=== PATIENT | female | born 1985 | race Two or more races ===

== ENCOUNTER → 2018-08-09 | Outpatient (CLI) | END | disposition home or self-care (01) ==

== ENCOUNTER 2018-12-23 17:37 | Outpatient (CLI) | payer MEDICAID ==
[~2018-12-23] VITALS: Ht 152.4 cm; Wt 87.7 kg
[2018-12-23 18:07] VITALS: Ht 152.4 cm; Wt 87.7 kg
[2018-12-23] MEDS ORDERED: PREN-93 PO (18:10)
--- NOTE | 2018-12-23 22:57 | PN ---
Triage Information Date/Time Reason for visit: deceleration of FHT ( not in detail informed) Weeks of Gestation 28w6d /Para Diabetes: none Hypertention: none Additional information sent from NST room for extended observation Objective Heart Rate: 140's Heart Rate Comments variable is very brief ,steep within the normal range of FHT without any significance Contractions: None Results/Medications Imaging Results BPP 06/02 NADEEM 16.2 Disposition: Discharge Assessment/Plan A IUP 28w6d adequate FHR for GA P discharge home advise to monitor movement RTH if FM decrease immediately CAITLIN MUHAMMAD MD Dec 23, 2018 22:57
--- NOTE | 2018-12-23 23:20 | TRIAGE ---
OB Triage Datetime Report Generated by CPN: 12/23/2018 23:19 Datetime: 12/23/2018 22:18 Stage of : OB Triage Labor Evaluation Frequency: X0 Monitor Mode: External Duration (sec)2399: X0 Quality: Mild Pattern: Normal: <= 5 Contractions in 10 Minutes Resting Tone [place]: Relaxed Heart Rate FHR Baseline Rate: 145 Monitor Mode: External US Variability: Moderate 6-25 bpm Accelerations: 15X15 Decelerations: None Category: Category I Datetime: 12/23/2018 21:15 Stage of : OB Triage Labor Evaluation Frequency: X0 Monitor Mode: External Duration (sec)2399: X0 Pattern: Normal: <= 5 Contractions in 10 Minutes Resting Tone [place]: Relaxed Heart Rate FHR Baseline Rate: 145 Monitor Mode: External US Variability: Moderate 6-25 bpm Accelerations: 10X10 Decelerations: None Category: Category I Datetime: 12/23/2018 20:12 Stage of : OB Triage Labor Evaluation Frequency: irritability Duration (sec)2399: 30 Quality: Mild Pattern: Normal: <= 5 Contractions in 10 Minutes Resting Tone [place]: Relaxed Heart Rate FHR Baseline Rate: 145 Monitor Mode: External US Variability: Moderate 6-25 bpm Accelerations: 15X15 Decelerations: None Category: Category I Comments: appropriate for gestational age Datetime: 12/23/2018 19:29 Monitor Mode: External US Category: Category I Comments: pt reported increased movement. Datetime: 12/23/2018 19:00 Maternal Assessment Level of Consciousness: Fully Conscious DTR's/Clonus: DTRs 1+ Headache: Denies Blurred Vision: No Respiratory Effort: Unlabored Breath Sounds, Left: Clear and Equal Breath Sounds, Right: Clear and Equal Nausea/Vomiting: Denies RUQ Epigastric Pain: Denies Facial Edema: None Labor Evaluation Frequency: NONE Monitor Mode: External Resting Tone [place]: Relaxed Heart Rate FHR Baseline Rate: 150 Monitor Mode: External US Variability: Moderate 6-25 bpm Accelerations: 10X10 Decelerations: None Category: Category I Pain Assessment Pain Scale: 0 Pain Presence: None/Denies Pain Type: N/A Pain Goal: 3 Vaginal Exam Membrane Status: Intact Datetime: 12/23/2018 18:05 Time of Arrival: 12/23/2018 18:05 EGA: 28.6 Arrived By: Ambulatory Arrived From: Dr. Gonzalez Chief Complaint: PT CAME IN FROM [facility]DS OFFICE FOR AUDIBLE DECELERATION Movement: Present Contractions: Denies/Absent Rupture of Membranes: Denies Vaginal Discharge: Denies Recent Sexual Intercouse: Denies Abdominal Trauma: Not Applicable Patient Complaints: Other Additional Patient Complaints: NONE Time Provider Notified: 12/23/2018 19:17 Provider Notified: DR. CANNON Initial Plan: ZOIE AND RYAN
== END 2018-12-23 22:18 | disposition home or self-care (01) ==
LOC: OBT 17:37 → L-D 17:38 → OBT 22:18
PROVIDERS: ATTEND Obstetrics & Gynecology
DX: O76 Abnormality in fetal heart rate and rhythm complicating labor and delivery (principal); Z3A.38 38 weeks gestation of pregnancy
CPT/HCPCS: 76818; Z7500; G0463

== ENCOUNTER 2019-01-11 21:56 | Inpatient (IN) | payer MEDICAID ==
[~2019-01-11 21:56] MED LIST: PREN-93 PO
[2019-01-12] MEDS ORDERED: LIDOCAINE/MYLANTA 40 ML BTL PO ONE (04:00)
[2019-01-12] MEDS ORDERED: TERBUTALINE 1 MG/ML INJ SC ONE ×2 (05:49→06:00)
[2019-01-12] MEDS ORDERED: LACTATED RINGER'S 500 ML IV ONE (06:00)
[2019-01-12] MEDS ORDERED: LACTATED RINGER'S 1,000 ML IV ONE (08:00)
--- NOTE | 2019-01-12 10:47 | TRIAGE ---
OB Triage Datetime Report Generated by CPN: 01/12/2019 10:46 Datetime: 01/12/2019 10:39 Category: Category III Datetime: 01/12/2019 09:22 Stage of : OB Triage Labor Evaluation Frequency: 1-5 Monitor Mode: External Duration (sec)2399: 30-50 Pattern: Normal: <= 5 Contractions in 10 Minutes Resting Tone [place]: Relaxed Heart Rate FHR Baseline Rate: 150 Monitor Mode: External US Variability: Moderate 6-25 bpm Accelerations: 15X15 Decelerations: None Category: Category I Pain Presence: None/Denies Pain Type: N/A Datetime: 01/12/2019 08:31 Stage of : OB Triage Labor Evaluation Frequency: 1-5 Monitor Mode: External Duration (sec)2399: 30 Pattern: Normal: <= 5 Contractions in 10 Minutes Resting Tone [place]: Relaxed Heart Rate FHR Baseline Rate: 135 Monitor Mode: External US Variability: Moderate 6-25 bpm Accelerations: 15X15 Decelerations: None Category: Category I Pain Presence: None/Denies Pain Type: N/A Datetime: 01/12/2019 07:43 Stage of : OB Triage Labor Evaluation Frequency: 1-7 Monitor Mode: External Duration (sec)2399: 30 Pattern: Normal: <= 5 Contractions in 10 Minutes Resting Tone [place]: Relaxed Heart Rate FHR Baseline Rate: 145 Monitor Mode: External US Variability: Moderate 6-25 bpm Accelerations: 15X15 Decelerations: None Category: Category I Pain Presence: None/Denies Pain Type: N/A Datetime: 01/12/2019 06:21 Pain Assessment Pain Scale: 0 Pain Presence: None/Denies Pain Type: N/A Datetime: 01/12/2019 05:46 Vaginal Exam Dilatation (cms): 0.0 Effacement (%): 0 Station: -3 Exam By: Naman Wray RN Vaginal Bleeding: None Cervix, Consistency: Moderate Cervix, Position: Posterior Datetime: 01/12/2019 05:30 Pain Assessment Pain Scale: 0 Pain Presence: None/Denies Pain Type: N/A Datetime: 01/12/2019 04:00 Pain Assessment Pain Scale: 0 Pain Presence: None/Denies Pain Type: N/A Datetime: 01/12/2019 00:55 Pain Assessment Pain Scale: 4 Pain Presence: Constant Pain Type: Pressure Pain Location: Abdomen Datetime: 01/12/2019 00:35 Time of Arrival: 01/11/2019 21:45 EGA: 31.4 Arrived By: Wheelchair Arrived From: Home Chief Complaint: Constant abdominal pain Movement: Present Contractions: Unsure Time Contractions Began: 01/11/2019 17:45 Contractions: Constant Rupture of Membranes: Denies Vaginal Bleeding: None Vaginal Discharge: Denies Recent Sexual Intercouse: Denies Abdominal Trauma: Not Applicable Patient Complaints: Other Time Provider Notified: 01/12/2019 00:58 Provider Notified: Dr. Feliciano Initial Plan: [facility] Datetime: 01/12/2019 00:33 Stage of : OB Triage Assessment Type: Triage Maternal Assessment Level of Consciousness: Fully Conscious DTR's/Clonus: DTRs 2+; No Clonus Headache: Denies Blurred Vision: No Respiratory Effort: Unlabored; Regular Rhythm; Equal Expansion Breath Sounds, Left: Clear and Equal Breath Sounds, Right: Clear and Equal Nausea/Vomiting: Denies RUQ Epigastric Pain: Denies Lower Extremities Edema: None Degree: None Upper Extremities Edema: None Degree: None Facial Edema: None Temperature Route: Oral Fall Risk Assessment History of Falling: (0) No Secondary Diagnosis: (0) No Ambulatory Aid: (0) Bedrest/Nurse Assist IV Therapy: (0) No Gait: (0) Normal/Bedrest/Immobile Mental Status: (0) Oriented to Own Ability Fall Score: 0 Fall Risk Score Definition: No Risk: No action required Pain Assessment Pain Scale: 5 Pain Presence: Constant Pain Type: Pressure (Annotations: Tightening) Pain Location: Abdomen Datetime: 12/23/2018 18:05 EGA: 28.6
[2019-01-12] MEDS ORDERED: MAGNESIUM SULFATE 4 GM/100 ML 100 ML IV ONE (11:00)
[2019-01-12] MEDS: LACTATED RINGER'S 1,000 ML IV SCH (11:54)
[2019-01-12] MEDS: MAGNESIUM SULFATE 20 GM/500 ML 500 ML IV SCH ×2 (13:02→22:18)
[2019-01-12] MEDS: BETAMET NA PHOS/AC(6 MG/ML) 2 ML INJ SYG IM SCH (13:06)
--- NOTE | 2019-01-12 20:02 | HP ---
Date/Time of Note Date/Time of Note DATE: 01/12/19 TIME: 19:59 OB - History Hx of Present Free Text/Dictation 33-year-old female 1 para 0 at 31 weeks plus gestation admitted complaining of onset of uterine contractions started 5:30 PM on 01/11/2019 Denies rupture of membrane no vaginal bleeding Last Menstrual Period: Jun 16, 2018 Estimated Due Date: March 11, 2019 : 1 Para: 0 Care: Good Care Ultrasounds: Normal mid trimester US Obstetrical Complications: None Medical Complications: None Past Family/Social History * Past Medical, Surgical, Family and Obstetric Histories reviewed from chart. Blood Type: AB+ Rubella: immune RPR/VDRL: Negative GBS Status: Unknown HBsAG: Negative OB Admission Exam Physical Exam HEENT: WNL Heart: Rhythm Normal Lungs: Clear, Equal Abdomen: WNL Extremities: Normal Reflexes: Normal Cervical Dilatation: None Effacement: 0% Station: -3 Membranes: Intact Heart Rate: 140's Accelerations: Accelerations Present Decelerations: Early Decelerations Varibility: Marked Contractions on Admission: < 5 Minutes Apart Date/Time Contractions Began: 5:30 PM 01/11/2019 Frequency of Contractions: Every 5-10 minutes Duration: Over 50 seconds Intensity: Mild Last 72 hours Lab Results Magnesium Level Test 01/12/19 18:25 Magnesium Level 4.5 H OB Assessment/Plan Reason for admission: labor Other Assessment: contractions at 31+ weeks Other plan: Patient was started on magnesium sulfate for neuro protection Will give steroids Continue to observe patient in house DORI ARZATE MD Jan 12, 2019 20:02
[2019-01-13] MEDS: LACTATED RINGER'S 1,000 ML IV SCH ×2 (01:14→17:42)
[2019-01-13] MEDS: MAGNESIUM SULFATE 20 GM/500 ML 500 ML IV SCH (07:27)
[2019-01-13] MEDS ORDERED: FERROUS SULFATE (EC) 325 MG TAB PO SCH ×2 (09:00→21:00)
[2019-01-13] MEDS ORDERED: PRENATAL VITAMIN PO SCH ×2 (09:00→21:00)
[2019-01-13] MEDS: BETAMET NA PHOS/AC(6 MG/ML) 2 ML INJ SYG IM SCH (13:11)
--- NOTE | 2019-01-13 14:30 | DS ---
Date/Time of Note Date/Time of Note DATE: 01/13/19 TIME: 14:28 Obstetrical Discharge Record Final Diagnosis Final Diagnosis: not delivered Other Final Diagnosis contractions at 31 weeks Complications Tocolytics: Magnesium Sulfate, Terbutaline, Other (Nifedipine) Condition on Discharge Physical Assessment Voiding: Yes Bowel Movement: Yes Breast: Soft, non-tender, Filling Fundus: Other Abdomen and Incision: Abdomen is gravid Final height is 32 Calf Tenderness: No Patient Condition: Good (Patient without uterine contractions and appears stable on p.o. nifedipine) DORI ARZATE MD Jan 13, 2019 14:30
--- NOTE | 2019-01-13 14:39 | PD.PPDC ---
[employer] Discharge Instruction Provider Information Physician Information 34-year-old female admitted with contractions are not successful tocolysis of contractions using magnesium sulfate nifedipine Diagnosis [id number] Final Diagnosis: [place] contractions Condition [id number] Patient Condition: [id number] Good (Patient without uterine contractions and appears stable on p.o. nifedipine) Diet [id number] Diet: Vwjdx8o Resume Regular Diet Activity/Restrictions [id number] Activity: Xklgb4r Bedrest May Shower [id number] Restrictions: Pqgev4a No Exercising No Lifting Nothing in the Vagina No [place] Follow-up Follow-up with Physician: 4, Day/Days (In clinic for care) Return to clinic for Comment: Refer back to OB triage for persistent uterine contractions DORI ARZATE MD Jan 13, 2019 14:39
[2019-01-13] MEDS ORDERED: NIFE10CA PO ×2 (14:40→19:46)
[2019-01-13] MEDS: NIFEdipine 10 MG CAP PO SCH ×2 (15:11→18:00)
[2019-01-13] MEDS ORDERED: CALCIUM CARBONATE 1.25 GM TAB PO SCH (21:00)
== END 2019-01-13 20:25 | disposition home or self-care (01) | DRG 833 ==
LOC: OBT 21:56 → L-D 21:57 → PP1 01-12 10:43 → OBT 01-12 10:43
PROVIDERS: ADMIT Obstetrics & Gynecology; ATTEND Obstetrics & Gynecology
DX: O47.03 False labor before 37 completed weeks of gestation, third trimester (principal); Z3A.31 31 weeks gestation of pregnancy
CPT/HCPCS: 36415; 76705; 76815; 76817; 81003; 82731; 83735; 96372; G0463; J0702; J3105; J3475; J7120

== ENCOUNTER 2019-03-11 09:54 | Outpatient (CLI) | payer MEDICAID ==
[~2019-03-11] VITALS: Ht 154.9 cm; Wt 92.9 kg
[~2019-03-11 09:54] MED LIST changes: +NIFE10CA PO
[2019-03-11 10:42] VITALS: Ht 154.9 cm; Wt 92.9 kg
[2019-03-11 10:43] VITALS: BP 119/66; PULSE 90; RESP 18
--- NOTE | 2019-03-11 11:39 | PN ---
Triage Information Date/Time Reason for visit: postdate for NST BPp Weeks of Gestation 40wks /Para 1/0 Diabetes: none Hypertention: none Objective Vital Signs Date Temp Pulse Resp B/P (MAP) Pulse Ox O2 O2 Flow FiO2 Time Delivery Rate 03/11/19 98.1 90 18 119/66 10:43 (83) Heart Rate: 140's Contractions: None Disposition: Discharge Assessment/Plan [facility] 08/04 wants to discharge the patient and induce her next Thursday, CX closed Precautions discussed Questions answered Return to clinic in2 days for NST BPP VICTORIANO METCALF M.D. March 11, 2019 11:39
--- NOTE | 2019-03-11 12:17 | TRIAGE ---
OB Triage Datetime Report Generated by CPN: 03/11/2019 12:17 Datetime: 03/11/2019 11:36 Stage of : OB Triage Datetime: 03/11/2019 11:11 Labor Evaluation Frequency: 0 Monitor Mode: External Pattern: Normal: <= 5 Contractions in 10 Minutes Resting Tone [place]: Relaxed Heart Rate FHR Baseline Rate: 135 Monitor Mode: External US Variability: Moderate 6-25 bpm Accelerations: 10X10 Decelerations: None Category: Category I Pain Assessment Pain Scale: 0 Pain Presence: None/Denies Pain Type: N/A Pain Goal: 3 Pain Relief Measures: Comfort Measures Datetime: 03/11/2019 11:10 Stage of : OB Triage Datetime: 03/11/2019 10:11 Stage of : OB Triage Assessment Type: Triage Maternal Assessment Level of Consciousness: Fully Conscious DTR's/Clonus: DTRs 2+; No Clonus Headache: Denies Blurred Vision: No Respiratory Effort: Unlabored; Regular Rhythm; Equal Expansion Breath Sounds, Left: Clear and Equal Breath Sounds, Right: Clear and Equal Nausea/Vomiting: Denies RUQ Epigastric Pain: Denies Facial Edema: None Temperature Route: Axillary Fall Risk Assessment History of Falling: (0) No Secondary Diagnosis: (0) No Ambulatory Aid: (0) Bedrest/Nurse Assist IV Therapy: (0) No Gait: (0) Normal/Bedrest/Immobile Mental Status: (0) Oriented to Own Ability Fall Score: 0 Fall Risk Score Definition: No Risk: No action required Labor Evaluation Frequency: 0 Monitor Mode: External Pattern: Normal: <= 5 Contractions in 10 Minutes Resting Tone [place]: Relaxed Heart Rate FHR Baseline Rate: 125 Monitor Mode: External US Variability: Moderate 6-25 bpm Pain Assessment Pain Scale: 0 Pain Presence: None/Denies Pain Type: N/A Pain Goal: 3 Pain Relief Measures: Comfort Measures Datetime: 01/13/2019 20:25 Stage of : Antepartum Datetime: 01/13/2019 20:22 Stage of : Antepartum Datetime: 01/13/2019 19:11 Stage of : Antepartum Assessment Type: Ongoing Assessment Maternal Assessment Level of Consciousness: Fully Conscious DTR's/Clonus: DTRs 2+; No Clonus Headache: Denies Blurred Vision: No Respiratory Effort: Unlabored; Regular Rhythm; Equal Expansion Breath Sounds, Left: Clear and Equal Breath Sounds, Right: Clear and Equal Nausea/Vomiting: Denies RUQ Epigastric Pain: Denies Lower Extremities Edema: None Degree: None Upper Extremities Edema: None Degree: None Facial Edema: None Temperature Route: Oral Fall Risk Assessment History of Falling: (0) No Secondary Diagnosis: (0) No Ambulatory Aid: (0) Bedrest/Nurse Assist IV Therapy: (0) No Gait: (0) Normal/Bedrest/Immobile Mental Status: (0) Oriented to Own Ability Fall Score: 0 Fall Risk Score Definition: No Risk: No action required Monitor Mode: External Contraction Comments: PT DENIES CRAMPING Monitor Mode: External US Comments: PT STATES + FM Pain Presence: None/Denies Pain Type: N/A Vaginal Exam Membrane Status: Intact Vaginal Bleeding: None Datetime: 01/13/2019 18:24 Labor Evaluation Frequency: 0 Monitor Mode: External Pattern: Normal: <= 5 Contractions in 10 Minutes Resting Tone [place]: Relaxed Heart Rate FHR Baseline Rate: 135 Monitor Mode: External US FHR Baseline Changes: No Baseline Change Variability: Moderate 6-25 bpm Accelerations: 15X15 Decelerations: None Category: Category I Datetime: 01/13/2019 17:00 Labor Evaluation Frequency: 0 Monitor Mode: External Pattern: Normal: <= 5 Contractions in 10 Minutes Resting Tone [place]: Relaxed Heart Rate FHR Baseline Rate: 140 Monitor Mode: External US FHR Baseline Changes: No Baseline Change Variability: Moderate 6-25 bpm Accelerations: 15X15 Decelerations: None Category: Category I Datetime: 01/13/2019 16:36 Monitor Mode: External Duration (sec)2399: 0 Pattern: Normal: <= 5 Contractions in 10 Minutes Resting Tone [place]: Relaxed Heart Rate FHR Baseline Rate: 140 Monitor Mode: External US FHR Baseline Changes: No Baseline Change Variability: Moderate 6-25 bpm Accelerations: 10X10 Decelerations: None Category: Category I Datetime: 01/13/2019 16:35 Stage of : Antepartum Temperature Route: Oral Pain Assessment Pain Scale: 0 Pain Presence: None/Denies Pain Goal: 0 Datetime: 01/13/2019 16:31 Stage of : Labor Datetime: 01/13/2019 15:30 Labor Evaluation Frequency: 0 Monitor Mode: External Pattern: Normal: <= 5 Contractions in 10 Minutes Resting Tone [place]: Relaxed Heart Rate FHR Baseline Rate: 140 Monitor Mode: External US FHR Baseline Changes: No Baseline Change Variability: Moderate 6-25 bpm Accelerations: 10X10 Decelerations: None Category: Category I Datetime: 01/13/2019 11:39 Stage of : Antepartum Temperature Route: Oral Labor Evaluation Frequency: 0 Monitor Mode: External Pattern: Normal: <= 5 Contractions in 10 Minutes Resting Tone [place]: Relaxed Heart Rate FHR Baseline Rate: 140 Monitor Mode: External US FHR Baseline Changes: No Baseline Change Variability: Moderate 6-25 bpm Accelerations: 10X10 Decelerations: None Category: Category I Pain Assessment Pain Scale: 0 Pain Presence: None/Denies Pain Goal: 0 Datetime: 01/13/2019 11:02 Labor Evaluation Frequency: 0 Monitor Mode: External Pattern: Normal: <= 5 Contractions in 10 Minutes Resting Tone [place]: Relaxed Heart Rate FHR Baseline Rate: 130 Monitor Mode: External US FHR Baseline Changes: No Baseline Change Variability: Moderate 6-25 bpm Accelerations: 10X10 Decelerations: None Category: Category I Datetime: 01/13/2019 10:09 Labor Evaluation Frequency: 0 Monitor Mode: External Pattern: Normal: <= 5 Contractions in 10 Minutes Heart Rate FHR Baseline Rate: 140 Monitor Mode: External US FHR Baseline Changes: No Baseline Change Variability: Moderate 6-25 bpm Accelerations: 10X10 Decelerations: None Category: Category I Datetime: 01/13/2019 09:00 Labor Evaluation Frequency: 0 Monitor Mode: External Pattern: Normal: <= 5 Contractions in 10 Minutes Resting Tone [place]: Relaxed Datetime: 01/13/2019 07:40 Assessment Type: Ongoing Assessment Maternal Assessment Level of Consciousness: Fully Conscious DTR's/Clonus: DTRs 2+; No Clonus Headache: Denies Blurred Vision: No Respiratory Effort: Unlabored; Regular Rhythm; Equal Expansion Breath Sounds, Left: Clear and Equal Breath Sounds, Right: Clear and Equal Nausea/Vomiting: Denies RUQ Epigastric Pain: Denies Lower Extremities Edema: None Degree: None Upper Extremities Edema: None Degree: None Facial Edema: None Fall Risk Assessment History of Falling: (0) No Secondary Diagnosis: (0) No Ambulatory Aid: (0) Bedrest/Nurse Assist IV Therapy: (20) Yes Gait: (0) Normal/Bedrest/Immobile Mental Status: (0) Oriented to Own Ability Fall Score: 20 Fall Risk Score Definition: No Risk: No action required Datetime: 01/13/2019 07:39 Stage of : Antepartum Labor Evaluation Frequency: 0 Monitor Mode: External Pattern: Normal: <= 5 Contractions in 10 Minutes Resting Tone [place]: Relaxed Heart Rate FHR Baseline Rate: 140 Monitor Mode: External US FHR Baseline Changes: No Baseline Change Variability: Moderate 6-25 bpm Accelerations: 10X10 Decelerations: None Category: Category I Pain Assessment Pain Scale: 0 Pain Presence: None/Denies Pain Goal: 0 Datetime: 01/13/2019 07:34 Stage of : Antepartum Datetime: 01/13/2019 07:00 Labor Evaluation Frequency: NONE Monitor Mode: External Resting Tone [place]: Relaxed Heart Rate FHR Baseline Rate: 130 Monitor Mode: External US Variability: Moderate 6-25 bpm Accelerations: 15X15 Decelerations: None Category: Category I Pain Presence: None/Denies Pain Type: N/A Datetime: 01/13/2019 06:35 Stage of : Antepartum Datetime: 01/13/2019 06:00 DTR's/Clonus: DTRs 2+; No Clonus Labor Evaluation Frequency: NONE Monitor Mode: External Resting Tone [place]: Relaxed Heart Rate FHR Baseline Rate: 130 Monitor Mode: External US Variability: Moderate 6-25 bpm Accelerations: 15X15 Decelerations: None Category: Category I Pain Presence: None/Denies Pain Type: N/A Datetime: 01/13/2019 05:37 Monitor Mode: External US Datetime: 01/13/2019 05:00 Labor Evaluation Frequency: NONE Monitor Mode: External Resting Tone [place]: Relaxed Heart Rate FHR Baseline Rate: 130 Monitor Mode: External US Variability: Moderate 6-25 bpm Accelerations: 15X15 Decelerations: None Category: Category I Pain Presence: None/Denies Pain Type: N/A Pain Assessment Comments: PT SLEEPING BUT EASILY AROUSED Datetime: 01/13/2019 04:00 Stage of : Antepartum Maternal Assessment Level of Consciousness: Fully Conscious DTR's/Clonus: DTRs 2+; No Clonus Breath Sounds, Left: Clear and Equal Breath Sounds, Right: Clear and Equal Labor Evaluation Frequency: NONE Monitor Mode: External Resting Tone [place]: Relaxed Heart Rate FHR Baseline Rate: 130 Monitor Mode: External US Variability: Moderate 6-25 bpm Accelerations: 15X15 Decelerations: None Category: Category I Pain Presence: None/Denies Pain Type: N/A Vaginal Exam Membrane Status: Intact Vaginal Bleeding: None Datetime: 01/13/2019 03:30 Monitor Mode: External US Datetime: 01/13/2019 03:00 Labor Evaluation Frequency: NONE Monitor Mode: External Resting Tone [place]: Relaxed Heart Rate FHR Baseline Rate: 130 Monitor Mode: External US Variability: Moderate 6-25 bpm Accelerations: 15X15 Decelerations: None Category: Category I Pain Presence: None/Denies Pain Type: N/A Datetime: 01/13/2019 02:00 Labor Evaluation Frequency: NONE Monitor Mode: External Resting Tone [place]: Relaxed Heart Rate FHR Baseline Rate: 125 Monitor Mode: External US Variability: Moderate 6-25 bpm Pain Presence: None/Denies Pain Type: N/A Datetime: 01/13/2019 01:14 Stage of : Antepartum Datetime: 01/13/2019 01:00 Labor Evaluation Frequency: NONE Monitor Mode: External Resting Tone [place]: Relaxed Heart Rate FHR Baseline Rate: 130 Monitor Mode: External US Variability: Moderate 6-25 bpm Accelerations: 15X15 Decelerations: None Category: Category I Pain Presence: None/Denies Pain Type: N/A Datetime: 01/13/2019 00:00 Maternal Assessment Level of Consciousness: Fully Conscious DTR's/Clonus: DTRs 2+; No Clonus Breath Sounds, Left: Clear and Equal Breath Sounds, Right: Clear and Equal Labor Evaluation Frequency: NONE Monitor Mode: External Resting Tone [place]: Relaxed Heart Rate FHR Baseline Rate: 130 Monitor Mode: External US Variability: Moderate 6-25 bpm Accelerations: None Decelerations: None Category: Category I Pain Presence: None/Denies Pain Type: N/A Datetime: 01/12/2019 23:55 Monitor Mode: External US Datetime: 01/12/2019 23:12 Monitor Mode: External US Datetime: 01/12/2019 23:00 Labor Evaluation Frequency: NONE Monitor Mode: External Resting Tone [place]: Relaxed Heart Rate FHR Baseline Rate: 130 Monitor Mode: External US Variability: Moderate 6-25 bpm Accelerations: 15X15 Decelerations: None Category: Category I Pain Presence: None/Denies Pain Type: N/A Datetime: 01/12/2019 22:18 Stage of : Antepartum Datetime: 01/12/2019 22:12 Monitor Mode: External US Datetime: 01/12/2019 22:00 DTR's/Clonus: DTRs 2+; No Clonus Labor Evaluation Frequency: NONE Monitor Mode: External Resting Tone [place]: Relaxed Heart Rate FHR Baseline Rate: 135 Monitor Mode: External US Variability: Moderate 6-25 bpm Comments: LOC DUE TO ACTIVE FETUS Pain Presence: None/Denies Pain Type: N/A Datetime: 01/12/2019 21:00 Labor Evaluation Frequency: NONE Monitor Mode: External Resting Tone [place]: Relaxed Heart Rate FHR Baseline Rate: 135 Monitor Mode: External US Variability: Moderate 6-25 bpm Comments: TRACING UNREADABLE DUE TO ACTIVE FETUS AND PT MOVING AROUND ALOT Pain Presence: None/Denies Pain Type: N/A Datetime: 01/12/2019 20:00 Stage of : Antepartum Labor Evaluation Frequency: NONE Monitor Mode: External Resting Tone [place]: Relaxed Heart Rate FHR Baseline Rate: 140 Monitor Mode: External US Variability: Moderate 6-25 bpm Accelerations: 15X15 Decelerations: None Category: Category I Pain Presence: None/Denies Pain Type: N/A Datetime: 01/12/2019 19:35 Stage of : Antepartum Assessment Type: Ongoing Assessment Maternal Assessment Level of Consciousness: Fully Conscious DTR's/Clonus: DTRs 2+; No Clonus Headache: Denies Blurred Vision: No Respiratory Effort: Unlabored; Regular Rhythm; Equal Expansion Breath Sounds, Left: Clear and Equal Breath Sounds, Right: Clear and Equal Nausea/Vomiting: Denies RUQ Epigastric Pain: Denies Lower Extremities Edema: None Degree: None Upper Extremities Edema: None Degree: None Facial Edema: None Temperature Route: Oral Fall Risk Assessment History of Falling: (0) No Secondary Diagnosis: (0) No Ambulatory Aid: (0) Bedrest/Nurse Assist IV Therapy: (0) No Gait: (0) Normal/Bedrest/Immobile Mental Status: (0) Oriented to Own Ability Fall Score: 0 Fall Risk Score Definition: No Risk: No action required Monitor Mode: External Contraction Comments: PT DENIES CRAMPING Monitor Mode: External US Comments: PT STATES + FM Pain Presence: None/Denies Pain Type: N/A Vaginal Exam Membrane Status: Intact Vaginal Bleeding: None Datetime: 01/12/2019 19:00 Labor Evaluation Frequency: 0 Monitor Mode: External Pattern: Normal: <= 5 Contractions in 10 Minutes Resting Tone [place]: Relaxed Heart Rate FHR Baseline Rate: 140 Monitor Mode: External US FHR Baseline Changes: No Baseline Change Variability: Moderate 6-25 bpm Accelerations: 10X10 Decelerations: None Category: Category I Datetime: 01/12/2019 18:00 Labor Evaluation Frequency: 0 Monitor Mode: External Pattern: Normal: <= 5 Contractions in 10 Minutes Resting Tone [place]: Relaxed Heart Rate FHR Baseline Rate: 140 Monitor Mode: External US FHR Baseline Changes: No Baseline Change Variability: Moderate 6-25 bpm Accelerations: 10X10 Decelerations: None Category: Category I Datetime: 01/12/2019 17:00 Labor Evaluation Frequency: 0 Monitor Mode: External Pattern: Normal: <= 5 Contractions in 10 Minutes Resting Tone [place]: Relaxed Heart Rate FHR Baseline Rate: 140 Monitor Mode: External US FHR Baseline Changes: No Baseline Change Variability: Moderate 6-25 bpm Accelerations: 10X10 Decelerations: None Category: Category I Datetime: 01/12/2019 15:52 Labor Evaluation Frequency: 0 Monitor Mode: External Duration (sec)2399: 0 Pattern: Normal: <= 5 Contractions in 10 Minutes Resting Tone [place]: Relaxed Heart Rate FHR Baseline Rate: 140 Monitor Mode: External US FHR Baseline Changes: No Baseline Change Variability: Moderate 6-25 bpm Accelerations: 10X10 Decelerations: None Category: Category I Datetime: 01/12/2019 15:50 Stage of : Antepartum Datetime: 01/12/2019 15:05 Time of Arrival: 01/12/2019 09:50 EGA: 31.5 Arrived By: Ambulatory Arrived From: Home Chief Complaint: REFERRED FROM OFFICE FOR POST DATES EFW/BPP, DENIES LEAKING, BLEEDING OR UC'S Movement: Present Contractions: Denies/Absent Rupture of Membranes: Denies Vaginal Bleeding: None Vaginal Discharge: Denies Recent Sexual Intercouse: Denies Abdominal Trauma: Not Applicable Patient Complaints: None Time Provider Notified: 03/11/2019 11:10 Provider Notified: KASSANDRA Initial Plan: MONITOR, EFW, BPP Datetime: 01/12/2019 14:48 Labor Evaluation Frequency: 0 Monitor Mode: External Duration (sec)2399: 0 Pattern: Normal: <= 5 Contractions in 10 Minutes Resting Tone [place]: Relaxed Heart Rate FHR Baseline Rate: 140 Monitor Mode: External US FHR Baseline Changes: No Baseline Change Variability: Moderate 6-25 bpm Accelerations: 10X10 Decelerations: None Category: Category I Datetime: 01/12/2019 13:10 Stage of : Antepartum Datetime: 01/12/2019 13:00 Labor Evaluation Frequency: 0 Monitor Mode: External Pattern: Normal: <= 5 Contractions in 10 Minutes Resting Tone [place]: Relaxed Heart Rate FHR Baseline Rate: 140 Monitor Mode: External US FHR Baseline Changes: No Baseline Change Variability: Moderate 6-25 bpm Accelerations: 10X10 Decelerations: None Category: Category I Datetime: 01/12/2019 12:46 Assessment Type: Admission Assessment Maternal Assessment Level of Consciousness: Fully Conscious DTR's/Clonus: DTRs 2+; No Clonus Headache: Denies Blurred Vision: No Respiratory Effort: Unlabored; Regular Rhythm; Equal Expansion Breath Sounds, Left: Clear and Equal Breath Sounds, Right: Clear and Equal Nausea/Vomiting: Denies RUQ Epigastric Pain: Denies Lower Extremities Edema: None Degree: None Upper Extremities Edema: None Degree: None Facial Edema: None Fall Risk Assessment History of Falling: (0) No Secondary Diagnosis: (0) No Ambulatory Aid: (0) Bedrest/Nurse Assist IV Therapy: (20) Yes Gait: (0) Normal/Bedrest/Immobile Mental Status: (0) Oriented to Own Ability Fall Score: 20 Fall Risk Score Definition: No Risk: No action required Datetime: 01/12/2019 12:30 Labor Evaluation Frequency: X1 Monitor Mode: External Duration (sec)2399: 60 Quality: Mild Pattern: Normal: <= 5 Contractions in 10 Minutes Resting Tone [place]: Relaxed Heart Rate FHR Baseline Rate: 140 Monitor Mode: External US FHR Baseline Changes: No Baseline Change Variability: Moderate 6-25 bpm Accelerations: 15X15 Decelerations: None Category: Category I Datetime: 01/12/2019 11:27 Comments: TRANSFERRRING TO ANTI Datetime: 01/12/2019 00:35 EGA: 31.4 Datetime: 01/12/2019 00:33 Fall Score: 0 Fall Risk Score Definition: No Risk: No action required Datetime: 12/23/2018 18:05 EGA: 28.6
== END 2019-03-11 11:45 | disposition home or self-care (01) ==
LOC: OBT 09:54 → L-D 09:55 → OBT 11:45
PROVIDERS: ATTEND Obstetrics & Gynecology
DX: O48.0 Post-term pregnancy (principal); Z3A.40 40 weeks gestation of pregnancy
CPT/HCPCS: 76815; 76818; Z7500; G0463

== ENCOUNTER 2019-03-14 10:05 | Inpatient (IN) | payer MEDICAID ==
[~2019-03-14] VITALS: Ht 154.9 cm; Wt 93.4 kg
[~2019-03-14 10:05] MED LIST changes: -NIFE10CA PO
[2019-03-14 10:28] VITALS: Ht 154.9 cm; Wt 93.4 kg
--- NOTE | 2019-03-14 11:33 | TRIAGE ---
OB Triage Datetime Report Generated by CPN: 03/14/2019 11:33 Datetime: 03/14/2019 11:03 Stage of : OB Triage Datetime: 03/14/2019 10:48 Maternal Assessment Level of Consciousness: Fully Conscious DTR's/Clonus: DTRs 1+ Headache: Denies Blurred Vision: No Respiratory Effort: Unlabored Breath Sounds, Left: Clear and Equal Breath Sounds, Right: Clear and Equal Nausea/Vomiting: Denies RUQ Epigastric Pain: Denies Facial Edema: None Labor Evaluation Frequency: 10 Monitor Mode: External Duration (sec)2439: 50-70 Quality: Mild Pattern: Normal: <= 5 Contractions in 10 Minutes Resting Tone [place]: Relaxed Heart Rate FHR Baseline Rate: 130 Monitor Mode: External US Variability: Moderate 6-25 bpm Accelerations: 15X15 Decelerations: None Category: Category I Pain Assessment Pain Scale: 0 Pain Presence: None/Denies Pain Type: N/A Pain Goal: 3 Vaginal Exam Membrane Status: Intact Datetime: 03/14/2019 10:15 Assessment Type: Triage Maternal Assessment Level of Consciousness: Fully Conscious DTR's/Clonus: DTRs 2+; No Clonus Headache: Denies Blurred Vision: No Respiratory Effort: Unlabored; Regular Rhythm; Equal Expansion Breath Sounds, Left: Clear and Equal Breath Sounds, Right: Clear and Equal Nausea/Vomiting: Denies RUQ Epigastric Pain: Denies Lower Extremities Edema: None Degree: None Upper Extremities Edema: None Degree: None Facial Edema: None Fall Risk Assessment History of Falling: (0) No Secondary Diagnosis: (0) No Ambulatory Aid: (0) Bedrest/Nurse Assist IV Therapy: (0) No Gait: (0) Normal/Bedrest/Immobile Mental Status: (0) Oriented to Own Ability Fall Score: 0 Fall Risk Score Definition: No Risk: No action required Datetime: 03/14/2019 10:00 Time of Arrival: 03/14/2019 10:00 EGA: 40.3 Arrived By: Ambulatory Arrived From: Home Chief Complaint: PT CAME IN FOR NST AND BPP FOR POSTDATES, DENIES FEELING ANY UC'S AT THIS TIME Movement: Present Contractions: Denies/Absent Rupture of Membranes: Denies Vaginal Discharge: Denies Recent Sexual Intercouse: Denies Abdominal Trauma: Not Applicable Additional Patient Complaints: NONE Time Provider Notified: 03/14/2019 11:03 Provider Notified: KASSANDRA Initial Plan: NST, BPP, VE Datetime: 03/11/2019 10:11 Fall Score: 0 Fall Risk Score Definition: No Risk: No action required Datetime: 01/13/2019 19:11 Fall Score: 0 Fall Risk Score Definition: No Risk: No action required Datetime: 01/13/2019 07:40 Fall Score: 20 Fall Risk Score Definition: No Risk: No action required Datetime: 01/12/2019 19:35 Fall Score: 0 Fall Risk Score Definition: No Risk: No action required Datetime: 01/12/2019 15:05 EGA: 31.5 Datetime: 01/12/2019 12:46 Fall Score: 20 Fall Risk Score Definition: No Risk: No action required Datetime: 01/12/2019 00:35 EGA: 31.4 Datetime: 01/12/2019 00:33 Fall Score: 0 Fall Risk Score Definition: No Risk: No action required Datetime: 12/23/2018 18:05 EGA: 28.6
[2019-03-14] MEDS ORDERED: MISOPROSTOL 50 MCG CAPSULE VAG ONE (12:00)
[2019-03-14] MEDS ORDERED: LIDOCAINE 1% (MPF) 30 ML INJ INJ PRN (12:00)
[2019-03-14] MEDS ORDERED: MISOPROSTOL 200 MCG TAB PR PRN (12:00)
[2019-03-14] MEDS ORDERED: BUTORPHANOL 2 MG INJ IV PRN (12:00)
[2019-03-14] MEDS ORDERED: AMPICILLIN 2 GM/NS (PMX) 100 ML IV ONE (12:00)
[2019-03-14] MEDS ORDERED: OXYTOCIN 30 UNITS/LR 500 ML IV SCH ×3 (12:00)
[2019-03-14] MEDS ORDERED: CARBOPROST 250 MCG INJ IM PRN (12:00)
[2019-03-14] MEDS ORDERED: OXYTOCIN 30 UNITS/LR 500 ML IV PRN (12:00)
[2019-03-14] MEDS ORDERED: METHYLERGONOVINE 0.2 MG INJ IM PRN (12:00)
[2019-03-14] MEDS: LACTATED RINGER'S 1,000 ML IV SCH ×2 (12:26→18:44)
[2019-03-14] MEDS: MISOPROSTOL 50 MCG CAPSULE PO SCH ×3 (13:42→22:38)
[2019-03-14] MEDS ORDERED: AMPICILLIN 1 GM/NS (PMX) 50 ML IV SCH (15:30)
--- NOTE | 2019-03-14 18:19 | HP ---
Date/Time of Note Date/Time of Note DATE: 03/14/19 TIME: 18:15 OB - History Hx of Present Free Text/Dictation 33-year-old female 1 para 0 at 40 weeks and 3 days gestation admitted for induction of labor Patient referred to OB triage for antepartum testing and noticed to have amniotic fluid index of 4 cm and was admitted for induction of labor diagnosis of oligohydramnios Last Menstrual Period: Jun 16, 2018 Estimated Due Date: March 11, 2019 : 1 Para: 0 Care: Good Care Ultrasounds: Normal mid trimester US Obstetrical Complications: None Medical Complications: None Past Family/Social History * Past Medical, Surgical, Family and Obstetric Histories reviewed from chart. Blood Type: AB+ Rubella: immune RPR/VDRL: Negative GBS Status: Negative HBsAG: Negative OB Admission Exam Physical Exam HEENT: WNL Heart: Rhythm Normal Lungs: Clear, Equal Abdomen: WNL Extremities: Normal Reflexes: Normal Cervical Dilatation: None Effacement: 0% Station: -3 Membranes: Intact Heart Rate: 140's Accelerations: Accelerations Present Decelerations: No Decelerations Varibility: Marked Contractions on Admission: None Last 72 hours Lab Results CBC & BMP 03/14/19 11:42 OB Assessment/Plan Other Assessment: Term gestation Oligohydramnios by ultrasound Other plan: Start induction using Cytotec DORI ARZATE MD March 14, 2019 18:19
[2019-03-15] MEDS: LACTATED RINGER'S 1,000 ML IV SCH ×3 (03:50→19:55)
[2019-03-15] MEDS: MISOPROSTOL 50 MCG CAPSULE PO SCH ×3 (03:50→12:34)
--- NOTE | 2019-03-15 18:32 | PN ---
Date/Time of Note Date/Time of Note DATE: 03/15/19 TIME: 18:31 OB Subjective Subjective Subjective Patient complains of minimal uterine contractions OB Objective Objective Objective Vital signs are stable in general physical exam is unchanged Cervix is long and fingertip and posterior and hard OB Assessment/Plan Other Assessment: Oligohydramnios at 40+ weeks Other plan: Consider placing Cook's balloon DORI ARZATE MD March 15, 2019 18:32
[2019-03-16] MEDS: LACTATED RINGER'S 1,000 ML IV SCH ×2 (06:25→14:14)
--- NOTE | 2019-03-16 12:28 | QN ---
Documentation Comment Cook's balloon was placed without any complications DORI ARZATE MD March 16, 2019 12:28
[2019-03-16] MEDS ORDERED: OXYTOCIN 30 UNITS/LR 500 ML IV SCH (13:00)
--- NOTE | 2019-03-16 17:54 | PN ---
Date/Time of Note Date/Time of Note DATE: 03/16/19 TIME: 17:52 OB Subjective Subjective Subjective Does not complain of uterine contractions OB Objective Objective Objective Cervix was 3040% and half a centimeter open Cook's balloon was placed Currently has uterine contractions every 2 to 3 minutes which appears mild Vital signs as well as general physical exam is unchanged OB Assessment/Plan Reason for admission: induction of labor Other Assessment: Oligohydramnios at term Other plan: We will continue with Pitocin augmentation not exceeding over 80,000,000 i nternational unit as long as patient is carrying a balloon DORI ARZATE MD March 16, 2019 17:54
[2019-03-17] MEDS: LACTATED RINGER'S 1,000 ML IV SCH ×3 (00:18→06:17)
[2019-03-17] MEDS ORDERED: CARBOPROST 250 MCG INJ IM ONE (01:03)
--- NOTE | 2019-03-17 01:47 | PREAC ---
Date/Time of Note Date/Time of Note DATE: 03/17/19 TIME: 01:46 Anesthesia Eval and Record Evaluation Time Pre-Procedure Interview DATE: 03/17/19 TIME: 01:46 Age 33 Sex female NPO: Other Preoperative diagnosis induction of labor Planned procedure epidural Past Medical History Past Medical History: None Surgery & Anesthesia Issues No known issue Meds Anticoagulation: No Beta Yaneli within 24 hr: No Reason Beta Yaneli not given: Pt. not on B-Yaneli Reported Medications Vit No.124/Iron/FA ( Vitamin Tablet) 1 Each Tablet, 1 EACH PO, TAB 12/23/18 Discontinued Scripts Nifedipine* (Procardia*) 10 Mg Capsule, 20 MG PO Q6, #120 CAP 1 Refill Prov:DORI ARZATE MD 01/13/19 Current Medications Lactated Ringer's 1,000 ml @ 125 mls/hr Q8H IV Last administered on 03/17/19at 00:18; Admin Dose 125 MLS/HR; Start 03/14/19 at 11:42 Butorphanol Tartrate (Stadol) 2 mg Q2H PRN IV .PAIN SCALE 6-10 Last administered on 03/17/19at 00:18; Admin Dose 2 MG; Start 03/14/19 at 12:00 Lidocaine (Xylocaine 1% (Mpf)) 30 ml ONCE PRN INJ .EPISIOTOMY; Start 03/14/19 at 12:00 Oxytocin/Lactated Ringer's 500 ml @ 500 mls/hr ONCE POST IV ; Start 03/14/19 at 12:00 Oxytocin/Lactated Ringer's 500 ml @ 125 mls/hr POST IV ; Start 03/14/19 at 12:00 Oxytocin/Lactated Ringer's 500 ml @ 0 mls/hr ONCE PRN IV .VAGINAL BLEEDING; Start 03/14/19 at 12:00 Methylergonovine Maleate (Methergine) 0.2 mg ONCE PRN IM .VAGINAL BLEEDING; Start 03/14/19 at 12:00 Carboprost Tromethamine (Hemabate) 250 mcg ONCE PRN IM .VAGINAL BLEEDING; Start 03/14/19 at 12:00 Misoprostol (Cytotec) 1,000 mcg ONCE PRN ND .VAGINAL BLEEDING; Start 03/14/19 at 12:00 Oxytocin/Lactated Ringer's 500 ml @ 0 mls/hr FOR INDUCTION IV Last administered on 03/16/19at 12:43; Admin Dose 1 MLS/HR; Start 03/14/19 at 12:00 Oxytocin/Lactated Ringer's 500 ml @ 0 mls/hr FOR INDUCTION IV ; Start 03/16/19 at 13:00 Meds reviewed: Yes Allergies Coded Allergies: No Known Allergy (Unverified , 03/14/19) Allergies Reviewed: Yes Labs/Studies Labs Reviewed: Reviewed by anesthesiologist Result Diagram: 03/14/19 1142 test: N/A Pre-procedure Exam Airway: Adequate mouth opening, Adequate thyromental dist Mallampati: Mallampati III Teeth: Normal Lung: Normal Heart: Normal ASA Physical Status ASA physical status: 2 Emergency: None Pre-operative Attestations Prior to commencing anesthesia and surgery, the patient was re-evaluated, there was verification of: *The patient's identity *The results of appropriate recent lab work and preoperative vital signs *The above evaluation not changing prior to induction *Anesthetic plan, risk benefits, alternative and complications discussed with patient/family; questions answered; patient/family understands, accepts and wishes to proceed. MOHAN NEAL DO March 17, 2019 01:47
[2019-03-17] MEDS ORDERED: FENTAnyl 2MCG/ML-ROPIV 0.2% 100 ML ONE (01:57)
[2019-03-17] MEDS ORDERED: FENTAnyl 50 MCG/ML VIAL ONE (01:58)
[2019-03-17] MEDS ORDERED: DIPHENHYDRAMINE 50 MG INJ IV PRN ×3 (02:00→20:30)
[2019-03-17] MEDS ORDERED: FENTAnyl 2MCG/ML-ROPIV 0.2% 100 ML BAG EPI SCH (02:00)
[2019-03-17] MEDS ORDERED: ONDANSETRON 4 MG INJ IV PRN ×3 (02:00→20:30)
[2019-03-17] MEDS ORDERED: NALOXONE (0.4 MG/ML) INJ IV PRN ×2 (02:00→20:30)
[2019-03-17] MEDS ORDERED: ZOLPIDEM 5 MG TAB PO PRN (02:00)
--- NOTE | 2019-03-17 02:24 | PAC ---
Date/Time of Note Date/Time of Note DATE: 03/17/19 TIME: 02:24 Post-Anesthesia Notes Post-Anesthesia Note Last documented vital signs 110/65 105 99 18 98 Activity: WNL Respiratory function: WNL Cardiovascular function: WNL Mental status: Baseline Pain reasonably controlled: Yes Hydration appropriate: Yes Nausea/Vomiting absent: Yes MOHAN NEAL DO March 17, 2019 02:24
[2019-03-17] MEDS: ACETAMINOPHEN 325 MG TAB PO PRN ×2 (06:47→14:20)
[2019-03-17] MEDS ORDERED: GENTAMICIN 120 MG/NS (PMX) 100 ML IVPB ONE (07:00)
[2019-03-17] MEDS: AMPICILLIN 2 GM/NS (PMX) 100 ML IVPB SCH ×3 (08:07→16:20)
[2019-03-17] MEDS ORDERED: MINERAL OIL LIGHT 10 ML VIAL TOP ONE (14:00)
[2019-03-17] MEDS ORDERED: GENTAMICIN 80 MG/NS (PMX) 50 ML IVPB SCH (15:00)
[2019-03-17] MEDS ORDERED: CEFAZOLIN 2 GM/50 ML (PMX) 50 ML IVPB SCH (16:00)
[2019-03-17] MEDS ORDERED: OXYTOCIN 30 UNITS/LR 500 ML IV SCH (16:00)
[2019-03-17] MEDS ORDERED: CLINDAMYCIN 900 MG/D5W (PMX) 50 ML IVPB SCH (17:00)
--- NOTE | 2019-03-17 17:12 | PREAC ---
Date/Time of Note Date/Time of Note DATE: 03/17/19 TIME: 17:11 Anesthesia Eval and Record Evaluation Time Pre-Procedure Interview DATE: 03/17/19 TIME: 17:11 Age 33 Sex female NPO: 8 hrs Preoperative diagnosis failure tp progress Planned procedure c section Past Medical History Past Medical History: Includes : Gestational age: (40) Surgery & Anesthesia Issues No known issue Meds Anticoagulation: No Beta Yaneli within 24 hr: No Reason Beta Yaneli not given: Pt. not on B-Yaneli Reported Medications Vit No.124/Iron/FA ( Vitamin Tablet) 1 Each Tablet, 1 EACH PO, TAB 12/23/18 Discontinued Scripts Nifedipine* (Procardia*) 10 Mg Capsule, 20 MG PO Q6, #120 CAP 1 Refill Prov:DORI ARZATE MD 01/13/19 Current Medications Butorphanol Tartrate (Stadol) 2 mg Q2H PRN IV .PAIN SCALE 6-10 Last administered on 03/17/19at 00:18; Admin Dose 2 MG; Start 03/14/19 at 12:00 Lidocaine (Xylocaine 1% (Mpf)) 30 ml ONCE PRN INJ .EPISIOTOMY; Start 03/14/19 at 12:00 Oxytocin/Lactated Ringer's 500 ml @ 500 mls/hr ONCE POST IV ; Start 03/14/19 at 12:00 Oxytocin/Lactated Ringer's 500 ml @ 125 mls/hr POST IV ; Start 03/14/19 at 12:00 Oxytocin/Lactated Ringer's 500 ml @ 0 mls/hr ONCE PRN IV .VAGINAL BLEEDING; Start 03/14/19 at 12:00 Methylergonovine Maleate (Methergine) 0.2 mg ONCE PRN IM .VAGINAL BLEEDING; Start 03/14/19 at 12:00 Carboprost Tromethamine (Hemabate) 250 mcg ONCE PRN IM .VAGINAL BLEEDING; Start 03/14/19 at 12:00 Misoprostol (Cytotec) 1,000 mcg ONCE PRN NE .VAGINAL BLEEDING; Start 03/14/19 at 12:00 Oxytocin/Lactated Ringer's 500 ml @ 0 mls/hr FOR INDUCTION IV Last administered on 03/16/19at 12:43; Admin Dose 1 MLS/HR; Start 03/14/19 at 12:00 Oxytocin/Lactated Ringer's 500 ml @ 0 mls/hr FOR INDUCTION IV ; Start 03/16/19 at 13:00 Diphenhydramine HCl (Benadryl) 25 mg Q4H PRN IV .PRURITUS; Start 03/17/19 at 02:00 Ondansetron HCl (Zofran Inj) 4 mg Q6H PRN IV .NAUSEA/VOMITING; Start 03/17/19 at 02:00 Zolpidem Tartrate (Ambien) 5 mg HS MAY REPEAT X 1 PRN PO .INSOMNIA; Start 03/17/19 at 02:00 Naloxone HCl (Narcan) 0.2 mg Q2M PRN IV .RESP RATE; Start 03/17/19 at 02:00 Fentanyl/ Ropivacaine 100 ml EPIDURAL (PCEA) EPI Last administered on 03/17/19at 11:10; Admin Dose 100 ML; Start 03/17/19 at 02:00 Acetaminophen (Tylenol Tab) 650 mg Q4H PRN PO MILD PAIN(1-3)OR ELEVATED TEMP Last administered on 03/17/19at 14:20; Admin Dose 650 MG; Start 03/17/19 at 07:00 Ampicillin 100 ml @ 100 mls/hr Q6H IVPB Last administered on 03/17/19at 16:20; Admin Dose 100 MLS/HR; Start 03/17/19 at 07:00 Gentamicin Sulfate 50 ml @ 104 mls/hr Q8H IVPB Last administered on 03/17/19at 15:13; Admin Dose 104 MLS/HR; Start 03/17/19 at 15:00 Cefazolin Sodium/ Dextrose 50 ml @ 100 mls/hr ONCE IVPB ; Start 03/17/19 at 16:00 Oxytocin/Lactated Ringer's 500 ml @ 125 mls/hr POST IV ; Start 03/17/19 at 16:00 Clindamycin HCl/ Dextrose 50 ml @ 50 mls/hr ONCE IVPB ; Start 03/17/19 at 17:00; Stop 03/17/19 at 17:59 Meds reviewed: Yes Allergies Coded Allergies: No Known Allergy (Unverified , 03/14/19) Allergies Reviewed: Yes Labs/Studies Labs Reviewed: Reviewed by anesthesiologist Result Diagram: 03/14/19 1142 test: Positive Studies: ECG (n/a), CXR (n/a) Pre-procedure Exam Last vitals Vital Signs Date Temp Pulse Resp B/P (MAP) Pulse Ox O2 O2 Flow FiO2 Time Delivery Rate 03/17/19 100.0 14:20 Airway: Adequate mouth opening Mallampati: Mallampati I Teeth: Normal Lung: Normal Heart: Normal ASA Physical Status ASA physical status: 2 Emergency: None Planned Anesthetic Neuraxial: Epidural Planned Pain Management Epidural Pre-operative Attestations Prior to commencing anesthesia and surgery, the patient was re-evaluated, there was verification of: *The patient's identity *The results of appropriate recent lab work and preoperative vital signs *The above evaluation not changing prior to induction *Anesthetic plan, risk benefits, alternative and complications discussed with patient/family; questions answered; patient/family understands, accepts and wishes to proceed. TIAN POOLE MD March 17, 2019 17:12
[2019-03-17] MEDS ORDERED: METOCLOPRAMIDE 10 MG INJ ONE (17:13)
[2019-03-17] MEDS ORDERED: morphine SULFATE/PF (10 MG/10 ML) INJ ONE (17:13)
[2019-03-17] MEDS ORDERED: KETOROLAC 30 MG INJ ONE (17:13)
[2019-03-17] MEDS ORDERED: LIDOCAINE 1.5%/EPI MPF (SDV) 30 ML VIAL ONE (17:13)
[2019-03-17] MEDS ORDERED: OXYTOCIN 30 UNITS/LR 500 ML IV ONE (18:37)
[2019-03-17] MEDS ORDERED: KETOROLAC 30 MG INJ IV STA (18:46)
--- NOTE | 2019-03-17 18:46 | OPR ---
Operative Report Planned Procedure Procedure date March 17, 2019 Procedure(s) Primary section Performed by see signature line Second Facing Baster: TANJA BOURGEOIS MD Anesthesiologist: TIAN POOLE MD Pre-procedure diagnosis Term gestation Arrest of dilatation Arrest of descent Possible amnionitis [id number] Anesthesia Type: [id number] spinal Post-Procedure Post-procedure diagnosis Status post Findings Live Baby in OT position Amniotic fluid appeared turbid and foul-smelling Normal-appearing right and left fallopian tubes and ovaries Estimated Blood Loss: 500 - 600 mls Specimen(s) Placenta Grafts/Implant(s) none Complication(s) none Pt Condition post procedure: stable Disposition: PACU Procedure Description Under satisfactory anaesthesia a Pfannenstiel incision was made two fingerbreadth above and parallel to the symphysis of pubis. Incision was extended laterally to the border of the Recti muscles on either sides. Incision was carried down with sharp and blunt dissection until fascia was reached. Anterior Recti muscle fascia was incised in mid portion and incision extended laterally to the border of skin incision. Fascia was mobilized from muscle superiorly and Recti muscles were from midline using sharp and blunt dissection. Peritoneum was visualized; Avoiding bowel and bladder it was incised . Incision was extended superiorly and inferiorly. Bladder blade was placed. Posterior pe ritoneum covering the lower segment of the uterus and lower segment of the uterus were incised. Incision was extended laterally to the border of Round Lig. on either sides and baby was delivered from OP. position . Amniotic fluid appeared clear. Cord blood was obtained and cord had 3 vessels . Placenta was delivered spontaneously and appeared intact and complete. Intrauterine cavity was rubbed with a laparotomy sponge. Uterine incision was closed in 2 layers using running stitches of No1 Monocryl. Hemostasis appeared secure. Ovaries and Fallopian tubes were within normal limits. Announcing needle, lap sponge and instrument count to be correct abdomen was closed in layers as follows: Peritoneum and Recti muscles with running stitches of 2-0 Vicryl. Fascia with running stitch of No 1 PDS. Subcutaneous tissue with running stitches of 2-0 Chromic in 4 layers and skin was closed using dontae. Patient tolerated the procedure well and was transferred to [facility] in good condition. DORI ARZATE MD March 17, 2019 18:46
--- NOTE | 2019-03-17 18:55 | QN ---
Documentation Comment Patient progress cervical dilatation to complete 8 cm -10 station Regardless of aggressive Pitocin augmentation of labor epidural anesthesia and adequate contractions the dilatations did not change for her. Extending over 9 hours Finally decision was made to proceed with primary section After entertaining the situation with the patient she agreed to undergo C- section with full understanding of his complications including but not limited to infection and hemorrhage DORI ARZATE MD March 17, 2019 18:55
[2019-03-17] MEDS ORDERED: CIPROFLOXACIN 400MG/D5W 200 ML IVPB ONE (19:00)
[2019-03-17] MEDS ORDERED: ACETAMINOPHEN 325 MG TAB PO PRN (19:00)
[2019-03-17] MEDS ORDERED: KETOROLAC 30 MG INJ IV PRN ×2 (20:30)
[2019-03-17] MEDS ORDERED: morphine 2 MG INJ IV PRN ×6 (20:30)
[2019-03-17 21:45] VITALS: BP 109/65; RESP 18
[2019-03-17] MEDS ORDERED: LACTATED RINGER'S 1,000 ML IV SCH (22:55)
[2019-03-17] MEDS ORDERED: OXYCODONE/ACETAMINOPHEN (5/325) TAB PO PRN (23:00)
[2019-03-17] MEDS ORDERED: CARBOPROST 250 MCG INJ IM PRN (23:00)
[2019-03-17] MEDS ORDERED: OXYTOCIN 30 UNITS/LR 500 ML IV PRN (23:00)
[2019-03-17] MEDS ORDERED: LANOLIN HPA 1 PKT TOP PRN (23:00)
[2019-03-17] MEDS ORDERED: HYDROCODONE/APAP (5/325) TAB PO PRN (23:00)
[2019-03-17] MEDS ORDERED: METHYLERGONOVINE 0.2 MG INJ IM PRN (23:00)
[2019-03-17] MEDS ORDERED: NA PHOSPHATE/BIPHOS 133 ML ENEMA PR PRN (23:00)
[2019-03-17] MEDS ORDERED: MISOPROSTOL 200 MCG TAB PR PRN (23:00)
[2019-03-18] VITALS: BP 102/62; RESP 17
[2019-03-18] MEDS: GENTAMICIN 80 MG/NS (PMX) 50 ML IVPB SCH ×4 (00:21→22:36)
[2019-03-18] MEDS: AMPICILLIN 2 GM/NS (PMX) 100 ML IVPB SCH ×5 (01:43→23:35)
[2019-03-18] MEDS: CLINDAMYCIN 900 MG/D5W (PMX) 50 ML IVPB SCH ×4 (01:44→19:10)
[2019-03-18 04:00] VITALS: BP 99/60; RESP 18
--- NOTE | 2019-03-18 06:48 | PAC ---
Date/Time of Note Date/Time of Note DATE: 03/18/19 TIME: 06:48 Post-Anesthesia Notes Post-Anesthesia Note Last documented vital signs Vital Signs Date Temp Pulse Resp B/P (MAP) Pulse Ox O2 O2 Flow FiO2 Time Delivery Rate 03/18/19 98.3 89 18 99/60 (73) 95 Room Air 04:00 Activity: WNL Respiratory function: WNL Cardiovascular function: WNL Mental status: Baseline Pain reasonably controlled: Yes Hydration appropriate: Yes Nausea/Vomiting absent: No TIAN POOLE MD March 18, 2019 06:48
--- NOTE | 2019-03-18 06:50 | OPPN ---
Date/Time of Note Date/Time of Note DATE: 03/18/19 TIME: 06:49 Anesthesia Follow up Anesthesia Follow up Last documented vital signs Vital Signs Date Temp Pulse Resp B/P (MAP) Pulse Ox O2 O2 Flow FiO2 Time Delivery Rate 03/18/19 98.3 18 99/60 (73) 95 Room Air 04:00 Respiratory function: WNL Cardiovascular function: WNL Comments a 33 year poast duramorpg for [ost op pain POD #1 is fine . No itchimg, N/V/ headache, .Pain is controlled TIAN POOLE MD March 18, 2019 06:50
[2019-03-18 08:00] VITALS: BP 104/57; PULSE 109; RESP 18
[2019-03-18 12:00] VITALS: BP 103/78; PULSE 87; RESP 18
[2019-03-18] MEDS ORDERED: BISACODYL 10 MG SUPP PR ONE (14:00)
[2019-03-18 16:00] VITALS: BP 98/67; PULSE 86; RESP 18
--- NOTE | 2019-03-18 17:38 | PN ---
Date/Time of Note Date/Time of Note DATE: 03/18/19 TIME: 17:37 Assessment/Plan VTE Prophylaxis VTE Prophylaxis Intervention: ambulation Lines/Catheters IV Catheter Type (from Nrsg): Peripheral IV Assessment/Plan Assessment/Plan Status post postop day #1 Continue to ambulate and advance diet Repeat CBC following day Subjective 24 Hr Interval Summary Passing flatus but no BM Ambulating without problems Constitutional: no complaints, improved, ambulates, BM, flatus, urine output Pain Control: well controlled Exam/Review of Systems Vital Signs Vitals Vital Signs Date Temp Pulse Resp B/P (MAP) Pulse Ox O2 O2 Flow FiO2 Time Delivery Rate 03/18/19 98.7 86 18 98/67 (77) Room Air 16:00 03/18/19 96 12:00 Intake and Output 03/17/19 03/17/19 03/18/19 1414:59 22:59 06:59 IntakeIntake Total 104 ml OutputOutput Total 2630 ml 1000 ml BalanceBalance 104 ml -2630 ml -1000 ml Exam Free Text/Dictation Abdomen is soft with firm fundus, bowel sounds are present, abdomen is not distended Incision is covered Constitutional: alert, oriented, well developed Psych: no complaints, nl mood/affect Head: normocephalic, atraumatic Eyes: nl conjunctiva, EOMI, nl lids, nl sclera ENMT: nl external ears & nose, nl lips & teeth, nl nasal mucosa & septum, mucosa pink and moist Neck: supple, non-tender Respiratory: clear to auscultation, normal air movement Cardiovascular: regular rate and rhythm, nl pulses Gastrointestinal: soft, nl liver, spleen, non-tender Musculoskeletal: nl extremities to inspection, nl gait and stance Extremities: normal pulses Neurological: 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
[2019-03-18 19:50] VITALS: BP 106/72; PULSE 100; RESP 18
[2019-03-18] MEDS: SENNA/DOCUSATE NA (8.6MG/50MG) TAB PO SCH (21:40)
[2019-03-18] MEDS: IBUPROFEN 800 MG TAB PO SCH (21:40)
[2019-03-18] MEDS: LACTATED RINGER'S 1,000 ML IV SCH (22:36)
[2019-03-19] MEDS: CLINDAMYCIN 900 MG/D5W (PMX) 50 ML IVPB SCH ×4 (01:19→19:43)
[2019-03-19 03:55] VITALS: BP 105/65; PULSE 88; RESP 18
[2019-03-19] MEDS: AMPICILLIN 2 GM/NS (PMX) 100 ML IVPB SCH ×3 (05:36→18:15)
[2019-03-19] MEDS: IBUPROFEN 800 MG TAB PO SCH ×3 (05:58→21:49)
[2019-03-19] MEDS: LACTATED RINGER'S 1,000 ML IV SCH ×3 (06:00→23:01)
[2019-03-19] MEDS: GENTAMICIN 80 MG/NS (PMX) 50 ML IVPB SCH ×2 (08:05→17:27)
[2019-03-19 09:00] VITALS: BP 109/59; PULSE 93; RESP 18
[2019-03-19] MEDS: SENNA/DOCUSATE NA (8.6MG/50MG) TAB PO SCH ×2 (09:56→21:49)
[2019-03-19 16:00] VITALS: BP 111/58; PULSE 85; RESP 16
[2019-03-19 20:45] VITALS: BP 110/73; PULSE 90; RESP 18
[2019-03-19] MEDS: CIPROFLOXACIN 500 MG TAB PO SCH (22:33)
[2019-03-19] MEDS: DOXYCYCLINE 100 MG TAB PO SCH (22:59)
[2019-03-20 04:00] VITALS: BP 106/59; PULSE 91; RESP 17
[2019-03-20] MEDS: CIPROFLOXACIN 500 MG TAB PO SCH (05:59)
[2019-03-20] MEDS: IBUPROFEN 800 MG TAB PO SCH ×2 (05:59→13:58)
[2019-03-20 08:10] VITALS: BP 97/62; PULSE 77; RESP 18
[2019-03-20] MEDS ORDERED: DIPHTH/TET/ACEL PERTUSS (ADULT) 0.5 ML VIAL IM* ONE (09:00)
[2019-03-20] MEDS: DOXYCYCLINE 100 MG TAB PO SCH (09:55)
[2019-03-20] MEDS: SENNA/DOCUSATE NA (8.6MG/50MG) TAB PO SCH (09:55)
--- NOTE | 2019-03-20 11:50 | DS ---
Date/Time of Note Date/Time of Note DATE: 03/20/19 TIME: 11:49 Obstetrical Discharge Record Final Diagnosis Final Diagnosis: Term delivered Other Final Diagnosis 33-year-old female underwent primary section with diagnosis of arrest of dilatation and descent Section Section: Primary Primary Indication Arrest of dilatation and descent Complications Infection (Amnionitis) Augmentation: Yes Induction: Yes Condition on Discharge Physical Assessment Last Vitals: Vital signs stable Voiding: Yes Bowel Movement: Yes Breast: Soft, non-tender, Filling Fundus: Firm Abdomen and Incision: Abdomen is soft and nontender bowel sounds are present Incision is without induration and or erythema Calf Tenderness: No Patient Condition: Good DORI ARZATE MD March 20, 2019 11:50
--- NOTE | 2019-03-20 11:52 | DS ---
Date/Time of Note Date/Time of Note DATE: 03/20/19 TIME: 11:50 Discharge Summary Admission/Discharge Info Admit Date/Time March 14, 2019 at 11:03 Discharge Date/Time March 20, 2019 Discharge Diagnosis Status post Patient Condition: Good Procedures Primary section Hx of Present Illness 33-year-old female admitted with oligohydramnios after 40 weeks of gestation after intensive augmentation had arrest of dilatation and descent and underwent primary section Hospital Course Patient had uncomplicated hospitalization course Had fever in labor and was placed on IV antibiotics afterwards After section tolerated diet well on was ambulating without any probl ems White count became normal Incision was healing without induration and no erythema Discharge home on the third day with good prognosis and condition Home Meds Reported Medications Vit No.124/Iron/FA ( Vitamin Tablet) 1 Each Tablet, 1 EACH PO, TAB 12/23/18 Follow-up Plan To 3 days in clinic for staple removal Primary Care Provider Not On Staff Doctor Time spent on discharge: > 30 minutes Pending Labs Laboratory Tests Test 03/20/19 07:19 White Blood Count 10.8 10^3/ul (4.8-10.8) Red Blood Count 3.21 10^6/ul (4.20-5.40) Hemoglobin 10.0 g/dl (12.0-16.0) Hematocrit 29.7 % (37.0-47.0) Mean Corpuscular Volume 92.5 fl (82.0-101.0) Mean Corpuscular Hemoglobin 31.2 pg (29.0-33.0) Mean Corpuscular Hemoglobin Concent 33.7 g/dl (32.0-37.0) Red Cell Distribution Width 13.7 % (11.5-14.5) Platelet Count 186 10^3/UL (140-415) Mean Platelet Volume 11.0 fl (7.4-10.4) Immature Granulocytes % 0.600 % (0.001-0.429) Neutrophils % 70.2 % (39.0-77.0) Lymphocytes % 19.6 % (15.0-51.0) Monocytes % 7.3 % (0.0-11.0) Eosinophils % 2.1 % (0.0-7.0) Basophils % 0.2 % (0.0-2.0) Nucleated Red Blood Cells % 0.0 /100WBC (0.0-0.0) Immature Granulocytes # 0.060 10^3/ul (0.0-0.031) Neutrophils # 7.6 10^3/ul (1.6-7.5) Lymphocytes # 2.1 10^3/ul (0.8-2.9) Monocytes # 0.8 10^3/ul (0.3-0.9) Eosinophils # 0.2 10^3/ul (0.0-0.5) Basophils # 0.0 10^3/ul (0.0-0.1) Nucleated Red Blood Cells # 0.0 10^3/ul (0.0-0.0) DORI ARZATE MD March 20, 2019 11:52
--- NOTE | 2019-03-20 11:53 | PD.PPDC ---
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
[2019-03-20] MEDS ORDERED: IBUP800T48 PO (11:57)
[2019-03-20] MEDS ORDERED: ACET325T33 PO (11:57)
[2019-03-20] MEDS ORDERED: ACETAMINOPHEN 325 MG TAB PO PRN (12:00)
--- NOTE | 2019-03-21 17:37 | DELSUM ---
Delivery Summary A-C Datetime Report Generated by CPN: 03/21/2019 17:37 DELIVERY PERSONNEL Loss Prevention Operations Manager: Duvo, Jeannie MATERNAL INFORMATION Delivery Anesthesia: Epidural Medications in Delivery: pitocin 30 units; see anesthsia record Delivery QBL (ml): 600 Placenta Cultured: Yes Maternal Complications: None Other Maternal Complications: POST DATE RN Comments: maternal temp LABOR SUMMARY EDC: 03/11/2019 00:00 No. Babies in Womb: 1 Attempted: No Labor Anesthesia: Epidural LABOR INFORMATION Reason for Induction: Postterm Cervical Ripening Agents: Ripening Balloon; Cytotec @ Oxytocin: Induction Group B Beta Strep: Negative Antibiotics # of Doses: 6 Antibiotics Time of Last Dose: 03/17/2019 17:20 Steroids Given: Full Course Reason Steroids Not Administered: Indication MEMBRANES Membranes Rupture Method: Spontaneous Rupture of Membranes: 03/17/2019 10:03 Length of Rupture (hr): 7.83 Amniotic Fluid Color: Clear Amniotic Fluid Amount: Moderate Amniotic Fluid Odor: Normal STAGES OF LABOR Stage 3 hr: 0 Stage 3 min: 1 CSECTION DELIVERY Primary Indication: Secondary Arreof Dilata Secondary Indication: N/A CSection Urgency: Non Elective CSection Incidence: Primary Labor: Labor Elective: Nonelective CSection Incision: Lower Uterine Transverse BABY A INFORMATION Delivery Date/Time: 03/17/2019 17:53 Method of Delivery: Born in Route : No : N/A Forceps: N/A Vacuum Extraction: N/A Shoulder Dystocia : No SHOULDER DYSTOCIA BABY A Delivery Date/Time: 03/17/2019 17:53 PRESENTATION/POSITION BABY A Presentation: Cephalic Cephalic Presentation: Vertex Vertex Position: Left Occipital Anterior Breech Presentation: N/A PLACENTA INFORMATION BABY A Placenta Delivery Time : 03/17/2019 17:54 Placenta Method of Delivery: Manual Removal Placenta Status: Delivered SCORES BABY A Heart Rate 1 min: >100 bpm Resp Effort 1 min: Good Cry Reflex Irritability 1 min: Cough/Sneeze/Pulls Away Muscle Tone 1 min: Active Motion Color 1 min: Body [place], Extremit Blue Resuscitation Effort 1 min: Tactile Stimulation SCORE 1 MIN: 9 Heart Rate 5 min: >100 bpm Resp Effort 5 min: Good Cry Reflex Irritability 5 min: Cough/Sneeze/Pulls Away Muscle Tone 5 min: Active Motion Color 5 min: Body [place], Extremit Blue Resuscitation Effort 5 min: Tactile Stimulation SCORE 5 MIN: 9 INFANT INFORMATION BABY A Gestational Age at Delivery: 40.6 Gestational Status: Full Term- 39- 40.6 Weeks Infant Outcome : Liveborn Infant Condition : Stable Infant Sex: Male IDENTIFICATION/MEDS BABY A ID Band Number: [id number] ID Band Location: Right Leg; Left Arm Sensor Applied: Yes Sensor Number: [id number] Sensor Location : Cord Clamp Vitamin K Given : Not Given Erythromycin Given: Not Given WEIGHT/LENGTH BABY A Infant Birthweight (gm): 3120 Infant Weight (lb): 6 Weight (oz): 14 Infant Length (in): 20.50 Infant Length (cm): 52.07 CORD INFORMATION BABY A No. Cord Vessels: 3 Nuchal Cord : Around Neck x1, Tight Cord Blood Taken: Yes Suction: Mouth; Nose ASSESSMENT BABY A Complications: Decreased Variability; Multiple Variable Decels; Oligohydramnios Physical Findings at Delivery: Caput Succedaneum; Molding of the Head; Within Normal Limits Sewer Line Repairer/ALS Called : Yes Care By: Adri SHETH RN Transferred To: Remains with Mother
== END 2019-03-20 16:20 | disposition home or self-care (01) | DRG 786 ==
LOC: OBT 10:05 → L-D 10:05 → OBT 11:03 → L-D 11:23 → PP1 03-17 21:45
PROVIDERS: ADMIT Obstetrics & Gynecology; ATTEND Obstetrics & Gynecology
PROC: 10D00Z1 Extraction of Products of Conception, Low, Open Approach (ICD-10-PCS; principal; 2019-03-17)
DX: O48.0 Post-term pregnancy (principal); O41.1030 Infection of amniotic sac and membranes, unspecified, third trimester, not applicable or unspecified; O41.03X0 Oligohydramnios, third trimester, not applicable or unspecified; Z3A.40 40 weeks gestation of pregnancy; O62.1 Secondary uterine inertia; Z37.0 Single live birth
CPT/HCPCS: 62322; 76815; 76818; 80170; 83615; 85025; 85610; 85730; 86592; 86850; 86900; 86901; 87086; 87340; 88307; 99464; G0463; J0290; J0595; J0690; J0744; J1580; J1885; J2210; J2274; J2405; J2590; J2765; J3010; J7120